=== PATIENT | female | born 1945 ===

== ENCOUNTER → 2020-10-12 | Outpatient (CLI) | payer MEDICARE ==
--- NOTE | 2020-10-12 13:00 | Diagnostic Imaging Report ---
INDICATION: Fall, decreased range of motion. COMPARISON: None available. TECHNIQUE: 3 radiographs of the right hand dated 10/12/2020 FINDINGS: No acute fracture or dislocation. No destructive osseous process. Scattered degenerative changes including joint space narrowing and osteophyte formation is noted, greatest involving the 2nd through 4th DIP joints. No suspicious radiopaque foreign body. IMPRESSION: No acute osseous abnormality with scattered degenerative changes, greatest involving the 2nd through 4th DIP joints. Dictated by: Dictated on workstation # [id number]
== END ==
LOC: RAD FS 10:00
PROVIDERS: ATTEND Nurse Practitioner Family
DX: M19.041 Primary osteoarthritis, right hand (principal)
CPT/HCPCS: 73130